=== PATIENT | female | born 1985 | race Caucasian/White ===

== ENCOUNTER 2021-12-25 18:07 | Inpatient (IN) | payer OTHER, SELFPAY ==
[2021-12-25 18:20] VITALS: BP 102/73; PULSE 92; RESP 17; TEMP 36.8; O2SAT 97; BMI 29.9
--- NOTE | 2021-12-25 18:24 | PC.NURSE ---
PT AGREES TO BE SEEN IN ED, ALL BEDS OCCUPIED AT THIS TIME. PT RETURNED TO LOBBY AT THIS TIME. WILL BE ROOMED ANGELITO
[2021-12-25 20:10] VITALS: BP 109/76; PULSE 81; RESP 16; TEMP 36.9; O2SAT 99; BMI 29.9
[2021-12-25 20:12] VITALS: BMI 28.1
--- NOTE | 2021-12-25 20:13 | CT_ITS ---
PROCEDURE INFORMATION: Exam: CT Abdomen And Pelvis With Contrast Exam date and time: 12/25/2021 8:42 PM Age: 36 years old Clinical indication: Nausea and vomiting and other: Diarrhea; Additional info: Abdominal pain, n/v/d x5 days. TECHNIQUE: Imaging protocol: Computed tomography of the abdomen and pelvis with contrast. Radiation optimization: All CT scans at this facility use at least one of these dose optimization techniques: automated exposure control; mA and/or kV adjustment per patient size (includes targeted exams where dose is matched to clinical indication); or iterative reconstruction. Contrast material: ISOVUE; Contrast volume: 75 ml; Contrast route: IV; COMPARISON: No relevant prior studies available. FINDINGS: Liver: Mild fatty infiltration of the liver along the falciform ligament. Periportal edema, which is nonspecific. Gallbladder and bile ducts: Gallbladder is contracted. Pancreas: Normal. No ductal dilation. Spleen: Normal. No splenomegaly. Adrenal glands: Normal. No mass. Kidneys and ureters: Normal. No hydronephrosis. Stomach and bowel: Mild nonspecific bowel wall thickening of portions of small bowel. Appendix: Unremarkable appendix. Intraperitoneal space: Unremarkable. No free air. No significant fluid collection. Vasculature: Unremarkable. No abdominal aortic aneurysm. Lymph nodes: Unremarkable. No enlarged lymph nodes. Urinary bladder: Unremarkable as visualized. Reproductive: Endovaginal tampon. Bones/joints: Unremarkable. No acute fracture. Soft tissues: Unremarkable. Other findings: Stigmata of old granulomatous disease. IMPRESSION: 1. Mild nonspecific bowel wall thickening of portions of small bowel. Please exclude enteritis. 2. Periportal edema, which is nonspecific. Please exclude acute hepatitis.
[2021-12-25 20:26] VITALS: BP 130/86; PULSE 87; RESP 19; O2SAT 100
[2021-12-25 20:37] LABS: Microscopic, Urine URINE MICROSCOPIC (MICROSCOPIC)
[2021-12-25 20:39] LABS: Basophils # 0.3 K/mm3 (0-0.2); Basophils % 3.6 % (0.1-2.0); Eosinophils # 0.2 K/mm3 (0.0-0.4); Eosinophils % 2.3 % (0.1-12.0); Hematocrit 45.5 % (37.0-47.0); Hemoglobin 14.8 g/dL (12.2-16.2); Lymphocytes # 2.8 K/mm3 (0.7-4.5); Lymphocytes % 35.6 % (10-50); Mean Corpuscular HGB Conc 32.4 g/dL (31.8-35.4); Mean Corpuscular Hemoglobin 32.3 pg (27.0-31.2); Mean Corpuscular Volume 99.5 fl (81-99); Mean Platelet Volume 10.5 fl (7.4-10.4); Monocytes # 0.9 K/mm3 (0.1-1.0); Monocytes % 10.8 % (1.7-9.3); Neutrophils # 3.8 K/mm3 (1.8-7.8); Neutrophils % 47.6 % (37.0-80.0); Platelet Count 301 K/mm3 (142-424); Red Blood Count 4.57 M/mm3 (4.20-5.40); Red Cell Distribution Width 13.8 % (11.5-17.5); White Blood Count 7.9 K/mm3 (4.8-10.8)
--- NOTE | 2021-12-25 20:43 | HMH.EDNVD ---
ED Disposition Clinical Impression: Hepatitis Disposition: Admitted as Observation Condition on Discharge: Fair - Critical Care Critical Care Time: No Attestation: On 12/25/21, the high probability of a clinically significant, sudden or life threatening deterioration of the following system(s) required my full and direct attention, intervention and personal management. The time I documented below is in addition to time spent performing reported procedures but includes the following listed in this critical care notation. Medical Decision Making - Medical Records Medical records reviewed: Yes: I reviewed the patient's medical records. - Anselmo Inquiry Pt receiving controlled substance: No Vital Signs: 12/25/21 18:20 12/25/21 20:10 12/25/21 20:26 Temperature 98.3 F 98.4 F Temperature Source Oral Oral Pulse Rate 87 Pulse Rate [Right Brachial] 92 H 81 Respiratory Rate 17 16 19 Blood Pressure 130/86 Blood Pressure [Right Arm] 102/73 L 109/76 L Blood Pressure Mean [Right Arm] 82 87 Blood Pressure Source Automatic Cuff Blood Pressure Source [Right Arm] Automatic Cuff Automatic Cuff Blood Pressure Position Supine Blood Pressure Position [Right Arm] Sitting 02 Sat by Pulse Oximetry 97 99 100 Oxygen Delivery Method Room Air Room Air Room Air 12/25/21 21:00 Temperature Temperature Source Pulse Rate 83 Pulse Rate [Right Brachial] Respiratory Rate 19 Blood Pressure 109/68 L Blood Pressure [Right Arm] Blood Pressure Mean [Right Arm] Blood Pressure Source Automatic Cuff Blood Pressure Source [Right Arm] Blood Pressure Position Supine Blood Pressure Position [Right Arm] 02 Sat by Pulse Oximetry 100 Oxygen Delivery Method Room Air - Lab Data Lab results reviewed: Yes: I reviewed the patient's lab results. Lab Results 12/25/21 20:25: Urine Color Dk yellow, Urine Appearance Clear, Urine pH 7.0, Ur Specific [place] 1.010, Urine Protein Negative, Urine Glucose (UA) Negative, Urine Ketones Negative, Urine Blood 1+, Urine Nitrate Negative, Urine Bilirubin 2+ A, Urine Urobilinogen 2.0, Ur Leukocyte Esterase 1+ A, Urine RBC Occasional, Urine WBC 10-20, Ur Squamous Epith Cells 10-20, Urine Bacteria Trace 12/25/21 20:25: WBC 7.9, RBC 4.57, Hgb 14.8, Hct 45.5, MCV 99.5 H, MCH 32.3 H, MCHC 32.4, RDW 13.8, Plt Count 301, MPV 10.5 H, Neut % (Auto) 47.6, Lymph % (Auto) 35.6, [place] % (Auto) 10.8 H, Eos % (Auto) 2.3, Baso % (Auto) 3.6 H, Neut # (Auto) 3.8, Lymph # (Auto) 2.8, [place] # (Auto) 0.9, Eos # (Auto) 0.2, Baso # (Auto) 0.3 H, ESR 11 12/25/21 20:25: Sodium 138, Potassium 2.9 L*, Chloride 99, Carbon Dioxide 34 H, Anion Gap 7.9, BUN 4 L, Creatinine 0.60, Estimated Creat Clear 164, Estimated GFR 112, Est GFR ( Amer) 135, Glucose 110 H, Calcium 9.2, Total Bilirubin 10.2 H*, AST 2803 H*, ALT 4028 H*, Alkaline Phosphatase 209 H, C-Reactive Protein 5.8 H, Total Protein 8.1, Albumin 4.1, Globulin 4.0 H, Albumin/Globulin Ratio 1.0 L, Amylase 69, Lipase 70, Procalcitonin 0.205 12/25/21 20:25: PT 12.6 H, INR 1.12 H 12/25/21 20:25: Total Bilirubin 10.2 H*, Direct Bilirubin 8.3 H, Conjugated Bilirubin 5.5 H, Indirect Bilirubin 1.9 H, Unconjugated Bilirubin 1.9 H, Alkaline Phosphatase 209 H, Total Protein 8.0, Albumin 4.1 12/25/21 20:25: SARS-CoV-2 (PCR) Not detected, Influenza A Untype (PCR) Not detected, Influenza Type B (PCR) Not detected Result diagrams: 12/25/21 20:25 12/25/21 20:25 Orders (Tests/Meds): ED MEDICATIONS Generic Name Dose Route Start Last Admin Trade Name Freq PRN Reason Stop Dose Admin Sodium Chloride 1,000 mls @ 999 mls/hr 12/25/21 20:15 12/25/21 20:19 Sod Chlor 0.9% 1000ml Bag IV 12/25/21 21:15 999 mls/hr .Q1H1M TEGAN Administration Sodium Chloride 8 ml 12/25/21 20:15 12/25/21 20:28 Sodium Chloride 0.9% 10ml Vial IV 01/24/22 20:14 8 ml NEEDED PRN Administration dilute pepcid Discontinued Medications Generic Name Dose Route Start Last Admin Trade Name
[2021-12-25 20:46] LABS: Chloride 99 mmol/L (98-107); Sodium 138 mmol/L (136-145)
[2021-12-25 20:48] LABS: Amylase 69 U/L (30-110); Blood Urea Nitrogen 4 mg/dl (7-17); Creatinine Clearance Estimated 164 mL/min (50-200); Estimated Glomerular Filt Rate 112 ml/min (>60); GFR (African American) 135 ML/MIN (>60)
[2021-12-25 20:49] LABS: Albumin Level 4.1 g/dl (3.5-5.0); Alkaline Phosphatase 209 U/L (38-126); Anion Gap 7.9 mEq/L (5-15); Bilirubin,Total 10.2 mg/dl (0.2-1.3); Calcium 9.2 mg/dl (8.4-10.2); Carbon Dioxide 34 mmol/L (22.0-30.0); Glucose 110 mg/dl (74-100); Lipase 70 U/L (23-300); Total Protein,Serum 8.1 g/dl (6.3-8.2)
[2021-12-25 20:54] LABS: C-Reactive Protein 5.8 mg/L (0-4)
[2021-12-25 20:57] LABS: Potassium 2.9 mmoL/L (3.5-5.1)
[2021-12-25 21:00] VITALS: BP 109/68; PULSE 83; RESP 19; O2SAT 100
[2021-12-25 21:05] LABS: Appearance,Urine CLEAR (Clear); Blood, Urine 1+ (Negative); Color,Urine DK YELLOW (Yellow); Glucose,Urine (UA) Negative (Negative); Ketones,Urine Negative (Negative); Leukocyte Esterase,Urine 1+ (Negative); Nitrate,Urine Negative (Negative); Protein,Urine Negative (Negative)
[2021-12-25 21:07] LABS: Bilirubin,Urine 2+ (Negative)
[2021-12-25 21:09] LABS: INR 1.12 (0.9-1.1); Prothrombin Time 12.6 seconds (10.1-12.5)
[2021-12-25 21:14] LABS: Alanine Aminotransferase 4028 U/L (12-78); Aspartate Amino Transferase 2803 U/L (14-36)
[2021-12-25 21:16] LABS: Albumin Level 4.1 g/dl (3.5-5.0); Alkaline Phosphatase 209 U/L (38-126); Bilirubin, Conjugated 5.5 mg/dL (0.0-0.3); Bilirubin,Direct 8.3 mg/dl (0.0-0.4); Bilirubin,Indirect 1.9 mg/dL (0.0-0.9); Bilirubin,Total 10.2 mg/dl (0.2-1.3); Bilirubin,Unconjugated 1.9 mg/dL (0.0-1.1)
[2021-12-25 21:21] LABS: Coronavirus 19, PCR Not Detected (NotDetected); Erythrocyte Sedimentation Rate 11 mm/hr (0-20); Influenza A, PCR Not Detected (NotDetected); Influenza B, PCR Not Detected (NotDetected)
[2021-12-25 21:28] LABS: Procalcitonin 0.205 ng/mL (0.0-2.0)
--- NOTE | 2021-12-25 21:49 | PC.NURSE ---
patient assisted to bathroom
[2021-12-25 21:50] LABS: Bacteria,Urine Trace /lpf; RBC,Urine Occasional #/hpf (0-3)
[2021-12-25 22:53] VITALS: BMI 29.9
[2021-12-25 22:54] LABS: Alanine Aminotransferase 3996 U/L (12-78); Aspartate Amino Transferase 3006 U/L (14-36)
[2021-12-25 23:06] VITALS: BP 93/60; PULSE 98; RESP 16; TEMP 37.1; O2SAT 97
--- NOTE | 2021-12-25 23:29 | PC.NURSE ---
PT ARRIVED TO FLOOR VIA W/C FROM ED W/STAFF @ [id number]
[2021-12-25 23:44] LABS: Amphetamine/Metha Screen,Urine Negative ng/ml (<1000); Benzodiazepines Screen,Urine Negative ng/ml (<200)
[2021-12-25 23:45] LABS: Barbiturates Screen,Urine Negative ng/ml (<200)
[2021-12-25 23:46] LABS: Cannabinoid Screen,Urine Positive ng/ml (<50); Cocaine Screen,Urine Negative ng/ml (<300)
[2021-12-25 23:47] LABS: Methadone Screen,Urine Negative ng/ml (<300)
[2021-12-25 23:48] LABS: Opiate Screen,Urine Negative ng/ml (<300); Phencyclidine Screen,Urine Negative ng/ml (<25)
[2021-12-26] VITALS: BP 114/77; PULSE 88; RESP 19; TEMP 36.6; O2SAT 95
[2021-12-26 04:00] VITALS: BP 98/51; PULSE 98; RESP 15; TEMP 36.9; O2SAT 65
[2021-12-26 05:00] VITALS: BMI 30.8
[2021-12-26 05:51] LABS: Basophils # 0.1 K/mm3 (0-0.2); Eosinophils # 0.2 K/mm3 (0.0-0.4); Hematocrit 36.3 % (37.0-47.0); Lymphocytes % 36.6 % (10-50); Mean Corpuscular HGB Conc 33.2 g/dL (31.8-35.4); Mean Corpuscular Hemoglobin 32.9 pg (27.0-31.2); Mean Corpuscular Volume 99.1 fl (81-99); Mean Platelet Volume 10.9 fl (7.4-10.4); Monocytes # 0.6 K/mm3 (0.1-1.0); Monocytes % 10.7 % (1.7-9.3); Neutrophils # 2.6 K/mm3 (1.8-7.8); Neutrophils % 47.8 % (37.0-80.0); Platelet Count 214 K/mm3 (142-424); Red Blood Count 3.66 M/mm3 (4.20-5.40); Red Cell Distribution Width 13.9 % (11.5-17.5); White Blood Count 5.5 K/mm3 (4.8-10.8)
[2021-12-26 06:05] LABS: Hemoglobin 12.1 g/dL (12.2-16.2)
[2021-12-26 06:06] LABS: Albumin Level 2.7 g/dl (3.5-5.0); Alkaline Phosphatase 139 U/L (38-126); Anion Gap 5.5 mEq/L (5-15); Bilirubin, Conjugated 4.3 mg/dL (0.0-0.3); Bilirubin,Direct 6.4 mg/dl (0.0-0.4); Bilirubin,Indirect 1.5 mg/dL (0.0-0.9); Bilirubin,Total 7.9 mg/dl (0.2-1.3); Bilirubin,Unconjugated 1.5 mg/dL (0.0-1.1); Blood Urea Nitrogen 4 mg/dl (7-17); Calcium 7.7 mg/dl (8.4-10.2); Carbon Dioxide 28 mmol/L (22.0-30.0); Chloride 108 mmol/L (98-107); Creatinine Clearance Estimated 202 mL/min (50-200); Estimated Glomerular Filt Rate 138 ml/min (>60); GFR (African American) 167 ML/MIN (>60); Glucose 88 mg/dl (74-100); Potassium 3.5 mmoL/L (3.5-5.1); Sodium 138 mmol/L (136-145); Total Protein,Serum 5.5 g/dl (6.3-8.2)
[2021-12-26 07:18] LABS: Aspartate Amino Transferase 2383 U/L (14-36)
[2021-12-26 07:19] LABS: Alanine Aminotransferase 2700 U/L (12-78)
--- NOTE | 2021-12-26 07:49 | HMH.PHAINT ---
VERIFIED HOME MEDICATION LIST USING LIST FROM [facility]
--- NOTE | 2021-12-26 07:49 | HMH.PHAVTE ---
[facility] Pharmacy VTE Monitoring - Patient Demographics Admission date: 12/26/21 Report Date: 12/26/21 Time: 07:49 Allergies/Adverse Reactions: Patient Allergies No Known Allergies Allergy (Verified 02/12/19 12:25) Height: 1.65 m Weight: 83.915 kg Patient Problems: Current Active Problems Hepatitis (Acute) - VTE Risk Labs: VTE Related Lab Results Hgb 12.1 g/dL (12.2-16.2) L D 12/26/21 05:40 Hct 36.3 % (37.0-47.0) L 12/26/21 05:40 Plt Count 214 K/mm3 (142-424) D 12/26/21 05:40 PT 12.6 seconds (10.1-12.5) H 12/25/21 20:25 INR 1.12 (0.9-1.1) H 12/25/21 20:25 BUN 4 mg/dl (7-17) L 12/26/21 05:40 Creatinine 0.50 mg/dl (0.52-1.04) L 12/26/21 05:40 Estimated Creat Clear 202 mL/min (50-200) 12/26/21 05:40 Was VTE Risk Assessment Performed: No VTE Score: 1 Clinical Trial Participant: No - Prophylaxis VTE Prophylaxis Ordered?: Yes Types of VTE Prophylaxis: TEDS Knee High
[2021-12-26 08:00] VITALS: BP 108/70; PULSE 94; RESP 15; TEMP 37; O2SAT 98
--- NOTE | 2021-12-26 10:57 | CARE MANAGER ---
General Medical Bilirubin > 3.0 mg/dL(51.3??mol/L) (excludes uncomplicated viral hepatitis) and, All: ? Finding, = One: o Albumin level <?2.0 g/dL(20 g/L) ? Imaging scheduled or performed within last 24h ? Intervention, = One: o IV fluid, One: ? = 75 mL/h and, = One: ? Weight <?60 kg
[2021-12-26 13:40] LABS: Alkaline Phosphatase 153 U/L (38-126); Bilirubin, Conjugated 5.2 mg/dL (0.0-0.3); Bilirubin,Direct 7.2 mg/dl (0.0-0.4); Bilirubin,Indirect 1.6 mg/dL (0.0-0.9); Bilirubin,Total 8.8 mg/dl (0.2-1.3); Bilirubin,Unconjugated 1.6 mg/dL (0.0-1.1); Total Protein,Serum 6.2 g/dl (6.3-8.2)
[2021-12-26 14:06] LABS: Alanine Aminotransferase 3168 U/L (12-78); Aspartate Amino Transferase 2748 U/L (14-36)
--- NOTE | 2021-12-26 15:39 | HMH.HP ---
*Admission Date: 12/26/21 *Chief complaint: weakness *History of present illness: pt with progressive weakness and nausea with dec po intake with no known exposure to illness - pt had noted jaundice - has element of abd pain - pt seen in the ed and noted to have marked elevated lft and admitted for eval and treatment [facility] History I have reviewed the patient's past medical history: Yes Medical History: Denies:: Diabetes Mellitus Type 1, Diabetes Mellitus Type 2, MRSA *Have you ever received a pneumonia vaccine?: No *Have you received a flu vaccine this season?: No Laterality Cases: Right: Other Other Surgeries: Yes: , Tubal Ligation Amputation: No Fractures: No - *Social History Last grade of school completed: High school graduate Smoking Status: Never smoker Alcohol Intake: never Substance Use Type: marijuana Last Used Substance: days (ago) *Occupational Status:: employed Housing: house Household Members: significant other *Travel in the last 8 weeks: None Family Hx:: Cancer Review of Systems - Review of Systems Review of systems:: pertinent systems reviewed and negative unless documented below - Constitutional Reports malaise, Reports weakness, Denies fever(s) - Eyes Denies change in vision - ENT Denies sore throat - *Cardiovascular Denies shortness of breath - *Respiratory Denies cough - *Gastrointestinal Reports abdominal pain, Reports nausea, Reports vomiting - *Genitourinary Denies blood in urine - *Musculoskeletal Denies joint pain - Integumentary/Breasts Denies rash - *Neurologic Denies headache(s), Denies seizure-like activity - Psychiatric Denies depression Meds Home Medications Medication Instructions Recorded Confirmed Type Phentermine HCl 37.5 mg PO DAILY 12/25/21 12/25/21 History Allergies Allergy/AdvReac Type Severity Reaction Status Date / Time No Known Allergies Allergy Verified 02/12/19 12:25 Exam Vital signs and Labs for Last 24 Hours: Temp Pulse Resp BP Pulse Ox 98.6 F 94 H 15 108/70 L 98 12/26/21 08:00 12/26/21 08:00 12/26/21 08:00 12/26/21 08:00 12/26/21 08:00 Laboratory Results - last 24 hr 12/25/21 20:25: Urine Color Dk yellow, Urine Appearance Clear, Urine pH 7.0, Ur Specific [place] 1.010, Urine Protein Negative, Urine Glucose (UA) Negative, Urine Ketones Negative, Urine Blood 1+, Urine Nitrate Negative, Urine Bilirubin 2+ A, Urine Urobilinogen 2.0, Ur Leukocyte Esterase 1+ A, Urine RBC Occasional, Urine WBC 10-20, Ur Squamous Epith Cells 10-20, Urine Bacteria Trace 12/25/21 20:25: WBC 7.9, RBC 4.57, Hgb 14.8, Hct 45.5, MCV 99.5 H, MCH 32.3 H, MCHC 32.4, RDW 13.8, Plt Count 301, MPV 10.5 H, Neut % (Auto) 47.6, Lymph % (Auto) 35.6, [place] % (Auto) 10.8 H, Eos % (Auto) 2.3, Baso % (Auto) 3.6 H, Neut # (Auto) 3.8, Lymph # (Auto) 2.8, [place] # (Auto) 0.9, Eos # (Auto) 0.2, Baso # (Auto) 0.3 H, ESR 11 12/25/21 20:25: Sodium 138, Potassium 2.9 L*, Chloride 99, Carbon Dioxide 34 H, Anion Gap 7.9, BUN 4 L, Creatinine 0.60, Estimated Creat Clear 164, Estimated GFR 112, Est GFR ( Amer) 135, Glucose 110 H, Calcium 9.2, Total Bilirubin 10.2 H*, AST 2803 H*, ALT 4028 H*, Alkaline Phosphatase 209 H, C-Reactive Protein 5.8 H, Total Protein 8.1, Albumin 4.1, Globulin 4.0 H, Albumin/Globulin Ratio 1.0 L, Amylase 69, Lipase 70, Procalcitonin 0.205 12/25/21 20:25: PT 12.6 H, INR 1.12 H 12/25/21 20:25: Total Bilirubin 10.2 H*, Direct Bilirubin 8.3 H, Conjugated Bilirubin 5.5 H, Indirect Bilirubin 1.9 H, Unconjugated Bilirubin 1.9 H, AST 3006 H*, ALT 3996 H*, Alkaline Phosphatase 209 H, Total Protein 8.0, Albumin 4.1 12/25/21 20:25: SARS-CoV-2 (PCR) Not detected, Influenza A Untype (PCR) Not detected, Influenza Type B (PCR) Not detected 12/25/21 20:25: Urine Opiates Screen Negative, Urine Methadone Screen Negative, Ur Barbituates Screen Negative, Ur Phencyclidine Scrn Negative, Ur Amphetamines Screen Negative, U Benzodiazepines Scrn Negative, Urine Cocaine
[2021-12-26 16:00] VITALS: BP 119/65; PULSE 84; RESP 18; TEMP 36.8; O2SAT 99
--- NOTE | 2021-12-26 18:57 | PC.NURSE ---
Pt alert and oriented and able to make needs known. VSS. No c/o's this shift. CB in reach. IVF's continue per mar.
[2021-12-26 21:04] VITALS: BP 101/65; PULSE 68; RESP 14; TEMP 36.8; O2SAT 98
[2021-12-27 04:54] VITALS: BP 91/43; PULSE 85; RESP 16; TEMP 36.7; O2SAT 98
[2021-12-27 05:06] VITALS: BMI 30.3
--- NOTE | 2021-12-27 05:16 | PC.NURSE ---
Pt rested well this shift. Pt voiced no c/o of pain, N/V thus far in shift. IV infusing per MAR.
[2021-12-27 06:28] LABS: Basophils # 0.1 K/mm3 (0-0.2); Basophils % 1.2 % (0.1-2.0); Eosinophils # 0.2 K/mm3 (0.0-0.4); Eosinophils % 2.3 % (0.1-12.0); Hematocrit 38.7 % (37.0-47.0); Hemoglobin 12.4 g/dL (12.2-16.2); Lymphocytes # 2.4 K/mm3 (0.7-4.5); Lymphocytes % 32.3 % (10-50); Mean Corpuscular HGB Conc 32.1 g/dL (31.8-35.4); Mean Corpuscular Hemoglobin 32.3 pg (27.0-31.2); Mean Corpuscular Volume 100.7 fl (81-99); Mean Platelet Volume 11.5 fl (7.4-10.4); Monocytes # 0.8 K/mm3 (0.1-1.0); Monocytes % 10.3 % (1.7-9.3); Neutrophils % 53.9 % (37.0-80.0); Platelet Count 228 K/mm3 (142-424); Red Blood Count 3.84 M/mm3 (4.20-5.40); Red Cell Distribution Width 14.2 % (11.5-17.5); White Blood Count 7.3 K/mm3 (4.8-10.8)
[2021-12-27 06:36] LABS: Amylase 60 U/L (30-110); Anion Gap 6.8 mEq/L (5-15); Blood Urea Nitrogen 3 mg/dl (7-17); Carbon Dioxide 27 mmol/L (22.0-30.0); Chloride 105 mmol/L (98-107); Creatinine Clearance Estimated 199 mL/min (50-200); Estimated Glomerular Filt Rate 138 ml/min (>60); GFR (African American) 167 ML/MIN (>60); Glucose 83 mg/dl (74-100); Lipase 78 U/L (23-300); Potassium 3.8 mmoL/L (3.5-5.1); Sodium 135 mmol/L (136-145)
[2021-12-27 06:57] LABS: Albumin Level 2.9 g/dl (3.5-5.0); Alkaline Phosphatase 148 U/L (38-126); Bilirubin, Conjugated 5.1 mg/dL (0.0-0.3); Bilirubin,Direct 7.7 mg/dl (0.0-0.4); Bilirubin,Indirect 1.6 mg/dL (0.0-0.9); Bilirubin,Total 9.3 mg/dl (0.2-1.3); Bilirubin,Unconjugated 1.6 mg/dL (0.0-1.1); Total Protein,Serum 5.6 g/dl (6.3-8.2)
[2021-12-27 07:22] LABS: Alanine Aminotransferase 2816 U/L (12-78); Aspartate Amino Transferase 2569 U/L (14-36)
[2021-12-27 07:59] VITALS: BP 98/59; PULSE 79; RESP 18; TEMP 36.7; O2SAT 96
[2021-12-27 08:19] LABS: HIV Screen 4th Generation wRfx Non Reactive (Non Reactive)
--- NOTE | 2021-12-27 09:54 | P.PN_ITS ---
Internal Medicine - PN: Subj *Date: 12/27/21 *Time: 15:17 Exam Vital signs and Labs for Last 24 Hours: Temp Pulse Resp BP Pulse Ox 98.1 F 79 18 98/59 L 96 12/27/21 07:59 12/27/21 07:59 12/27/21 07:59 12/27/21 07:59 12/27/21 07:59 Laboratory Results - last 24 hr 12/25/21 22:31: HIV 1&2 Ag/Ab, 4th Gen Non reactive 12/26/21 13:13: Total Bilirubin 8.8 H, Direct Bilirubin 7.2 H, Conjugated Bilirubin 5.2 H, Indirect Bilirubin 1.6 H, Unconjugated Bilirubin 1.6 H, AST 2748 H*, ALT 3168 H*, Alkaline Phosphatase 153 H, Total Protein 6.2 L, Albumin 3.0 L D 12/27/21 05:52: WBC 7.3 D, RBC 3.84 L, Hgb 12.4, Hct 38.7, MCV 100.7 H, MCH 32.3 H, MCHC 32.1, RDW 14.2, Plt Count 228, MPV 11.5 H, Neut % (Auto) 53.9, Lymph % (Auto) 32.3, [place] % (Auto) 10.3 H, Eos % (Auto) 2.3, Baso % (Auto) 1.2, Neut # (Auto) 4.0, Lymph # (Auto) 2.4, [place] # (Auto) 0.8, Eos # (Auto) 0.2, Baso # (Auto) 0.1 12/27/21 05:52: Sodium 135 L, Potassium 3.8, Chloride 105, Carbon Dioxide 27, Anion Gap 6.8, BUN 3 L, Creatinine 0.50 L, Estimated Creat Clear 199, Estimated GFR 138, Est GFR ( Amer) 167, Glucose 83, Calcium 8.0 L, Amylase 60, Lipase 78 12/27/21 05:52: Total Bilirubin 9.3 H, Direct Bilirubin 7.7 H, Conjugated Bilirubin 5.1 H, Indirect Bilirubin 1.6 H, Unconjugated Bilirubin 1.6 H, AST 2569 H*, ALT 2816 H*, Alkaline Phosphatase 148 H, Total Protein 5.6 L, Albumin 2.9 L I & O for Last 24 hours: Intake & Output 12/24/21 12/25/21 12/26/21 12/27/21 23:59 23:59 23:59 23:59 Intake Total 1000 / 1000 600 / 600 4022 / 4022 Output Total 0 / 0 Balance 1000 / 1000 600 / 600 4022 / 4022 Weight 180 lb 185 lb 182 lb Microbiology Reports for the Last 24 Hours: Microbiology 12/25/21 20:25 Urine,Clean Catch Urine Culture - Preliminary Assessment and Plan (1) Hepatitis Status: Acute Category: Medical Code(s): K75.9 - Inflammatory liver disease, unspecified
[2021-12-27 10:22] LABS: Hep A Ab, IgM NEGATIVE
[2021-12-27 10:26] LABS: Hepatitis B Surface Antigen POSITIVE
[2021-12-27 10:28] LABS: Hepatitis C Antibody <0.1
[2021-12-27 10:29] LABS: Hepatitis B Core Antibody IgM POSITIVE
--- NOTE | 2021-12-27 14:59 | PC.NURSE ---
PT IS RESTING IN BED. NO COMPLAINTS OF DISCOMFORT. EATING AND DRINKING WELL W/O N/V. LUNG SOUNDS CLEAR. ABDOMEN MILDLY DISTENDED WITH HYPOACTIVE BOWEL SOUNDS. AMBULATES TO THE BATHROOM. SKIN (JAUNDICE). VSS. WILL CONTINUE TO MONITOR.
[2021-12-27 15:12] VITALS: BP 100/57; PULSE 70; RESP 18; TEMP 36.8; O2SAT 97
--- NOTE | 2021-12-27 15:17 | HMH.DCSUM ---
General - General Admission date:: 12/25/21 Discharge date: 12/27/21 HPI HPI: pt with progressive weakness and nausea with dec po intake with no known exposure to illness - pt had noted jaundice - has element of abd pain - pt seen in the ed and noted to have marked elevated lft and admitted for eval and treatment Hospital Course Hospital Course: pt with progressive weakness and nausea with dec po intake with no known exposure to illness - pt had noted jaundice - has element of abd pain - pt seen in the ed and noted to have marked elevated lft and admitted for eval and treatment AST initially 3006 has decreased to 2569 ALT initially 3996 has decreased to 2816 T bili initially 10.2 has decreased to 9.3 Potassium originally 2.9, has been replenished and now 3.8 Initially patient reported nausea that was treated with Zofran and she received IV fluids. She was able to tolerate a regular diet without any difficulties and was up moving about in her room. She denies any IV drug use or suspect tattoos. She does report helping a bleeding individual several weeks ago and coming into contact with his blood with her hands. Hepatitis was suspected and lab work revealed hepatitis A and hepatitis C both negative, but she was positive for hepatitis B. HIV was negative. Hepatitis B Follow-up in PCP office for discussion and GI consult Hypokalemia Initially 2.9 replenished and now 3.8 36-year-old female patient sitting up in bed resting quietly in no apparent distress. She denies any nausea this morning and is tolerating a regular breakfast without difficulty. We will discharge today with quick PCP follow-up PLAN: 1. We will discharge home today 2. Follow-up in office Saturday 3. No intercourse Objective Vital signs: Temp Pulse Resp BP Pulse Ox 98.3 F 70 18 100/57 L 97 12/27/21 15:12 12/27/21 15:12 12/27/21 15:12 12/27/21 15:12 12/27/21 15:12 no acute distress - *Routine HEENT Exam Head: Present: normocephalic Eye: Present: conjunctival icterus ENT: Present: mucous membranes moist - *Routine Neck Exam Present: trachea midline. Absent: tracheal deviation - *Routine Respiratory Exam Present: CTA bilaterally. Absent: accessory muscle use - *Routine Cardiovascular Exam Present: RRR - *Routine Abdominal Exam Present: soft, normoactive bowel sounds. Absent: tenderness, firm - *Routine Extremities Exam Present: full ROM, pulses intact. Absent: cyanosis, clubbing, calf tenderness - *Routine Skin Exam Present: intact, dry. Absent: cyanosis, erythema - *Routine Neurological Exam Present: alert, oriented X3. Absent: motor deficit - Routine Psychiatric Exam Present: normal affect, normal thought process. Absent: auditory hallucinations Results Labs on day of discharge: Labs from last 24 hours 12/27/21 12/27/21 12/27/21 05:52 05:52 05:52 WBC 7.3 D RBC 3.84 L Hgb 12.4 Hct 38.7 MCV 100.7 H MCH 32.3 H MCHC 32.1 RDW 14.2 Plt Count 228 MPV 11.5 H Neut % (Auto) 53.9 Lymph % (Auto) 32.3 [place] % (Auto) 10.3 H Eos % (Auto) 2.3 Baso % (Auto) 1.2 Neut # (Auto) 4.0 Lymph # (Auto) 2.4 [place] # (Auto) 0.8 Eos # (Auto) 0.2 Baso # (Auto) 0.1 Sodium 135 L Potassium 3.8 Chloride 105 Carbon Dioxide 27 Anion Gap 6.8 BUN 3 L Creatinine 0.50 L Estimated Creat Clear 199 Estimated GFR 138 Est GFR ( Amer) 167 Glucose 83 Calcium 8.0 L Total Bilirubin 9.3 H Direct Bilirubin 7.7 H Conjugated Bilirubin 5.1 H Indirect Bilirubin 1.6 H Unconjugated Bilirubin 1.6 H AST 2569 H* ALT 2816 H* Alkaline Phosphatase 148 H Total Protein 5.6 L Albumin 2.9 L Amylase 60 Lipase 78 Hepatitis A IgM Ab Hep Bs Antigen Hep B Core IgM Ab Hepatitis C Antibody HIV 1&2 Ag/Ab, 4th Gen 12/25/21 12/25/21 22:31 21:09 WBC RBC
== END 2021-12-27 16:03 | disposition home or self-care (01) | DRG 443 ==
LOC: ER 20:12 → 2ND 22:52
PROVIDERS: Nurse Practitioner Family; Admitting Provider Emergency Medicine; Emergency Provider Emergency Medicine; PCP Nurse Practitioner Family; Visit Provider Family Medicine
DX: B19.10 Unspecified viral hepatitis B without hepatic coma (principal); E87.6 Hypokalemia; Z20.822 Contact with and (suspected) exposure to COVID-19
CPT/HCPCS: 36415; 74177; 80048; 80053; 80074; 80076; 80305; 81001; 82150; 83690; 83735; 84145; 85025; 85610; 85651; 86140; 86703; 87086; 99285; C9803; G0432; J2405; Q9967; U0003; U0005

== ENCOUNTER → 2021-12-29 11:27 | Outpatient (CLI) | payer OTHER, SELFPAY ==
[2021-12-29 12:31] LABS: Chloride 103 mmol/L (98-107); Sodium 137 mmol/L (136-145)
[2021-12-29 12:34] LABS: Albumin Level 3.6 g/dl (3.5-5.0); Albumin/Globulin Ratio 1.1 (1.1-1.8); Alkaline Phosphatase 174 U/L (38-126); Bilirubin,Total 11.5 mg/dl (0.2-1.3); Blood Urea Nitrogen 5 mg/dl (7-17); Carbon Dioxide 28 mmol/L (22.0-30.0); Estimated Glomerular Filt Rate 112 ml/min (>60); GFR (African American) 135 ML/MIN (>60); Globulin 3.4 g/dL (1.3-3.2)
[2021-12-29 12:35] LABS: Calcium 9.5 mg/dl (8.4-10.2); Glucose 141 mg/dl (74-100)
[2021-12-29 13:58] LABS: Aspartate Amino Transferase 2646 U/L (14-36)
[2021-12-29 13:59] LABS: Alanine Aminotransferase 3070 U/L (12-78)
== END ==
PROVIDERS: PCP Nurse Practitioner Family; Visit Provider Nurse Practitioner Family
DX: K75.9 Inflammatory liver disease, unspecified (principal); N28.9 Disorder of kidney and ureter, unspecified
CPT/HCPCS: 36415; 80053; 87086; 87088; 87186

== ENCOUNTER → 2022-09-03 10:07 | Outpatient (POV) | payer OTHER, SELFPAY ==
--- NOTE | 2022-09-03 10:27 | EXP.PAIN.OV ---
HPI Data of Consult Patient: new to practice Consult date: 09/03/22 Requesting Physician: Stephanie Iverson APRN Primary Care Provider: Zev Gonzales APRN Consult Narrative Reason for consult: Low back pain History of present illness: Ms. Poole is a 36 year old female who presents today as a new patient. She is a referral from Zev Gonzales's office. Today she rates her pain a 6 out of 10. Patient states her pain is all in her low back and has been going on for years. Patient states that she did have a job at [employer] in 2009 where she did initially hurt her back and it is progressively worsened since. Patient does describe this as a aching, stabbing pain that is constant and worse with bending, lifting and twisting. 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 Patient also states that she has had weight gain over the years which has aggravated her pain symptoms. Patient states that she does get some relief with increased pressure at her back. Patient has tried [id number] medicine such as Tylenol or ibuprofen however she states she does not really take these because she does not like taking oral medications and she did not have significant improvement. Patient does use a daily heating pad to provide short-term relief. Patient has tried vpjr-dsa-[id number] creams such as Bengay with no additional relief. Patient denies any previous back surgery, injections or physical therapy. Patient states she has had chiropractor in the past that provided some improvement. Patient states she has not had any updated imaging for 3 to 4 years and that it was done in [facility]. Patient is on phentermine 37.5 mg daily from her primary care doctor. Patient denies any side effects from this medication. Her Anselmo is [phone]. Its been reviewed and appropriate. CC: Stephanie Iverson APRN [facility] Disclaimer: The information contained in this section may have been updated after the patient was seen, as this information can be updated by other users. Surgical History (Updated 09/03/22 @ 10:34 by Katt Fontenot RN) Hx of section Hx of tubal ligation Social History Smoking Status: Never smoker second hand exposure: No alcohol intake: never substance use type: marijuana current occupational status: employed Travel in the last 8 weeks: None household members: significant other housing: house Review of Systems Review of Systems Review of systems:: pertinent systems reviewed and negative unless documented below Review of systems (narrative): Review of Systems: General: No recent weight changes, no fever, no sleep disturbances Respiratory: No cough, no shortness of air, no recurring pulmonary infections Cardiovascular/peripheral vascular: No chest pain, no palpitations, no edema, no shortness of breath Gastrointestinal: No new onset incontinence, normal bowel movements reported Genitourinary: No new onset incontinence Musculoskeletal: Low back pain Psychiatric: [Normal mood/affect] Neurological: [Denies weakness in extremities], [denies balance issues] Meds Home Medications and Allergies Home Medications Medication Instructions Recorded Confirmed Type omeprazole 20 mg capsule,delayed 20 mg PO DAILY STOMACH 09/03/22 09/03/22 History release ondansetron 8 mg disintegrating 8 mg PO Q8H Nausea & vomiting 09/03/22 09/03/22 History tablet polyethylene glycol 3350 17 17 g PO DAILY BOWELS 09/03/22 09/03/22 History gram/dose oral powder (Miralax) New Prescriptions to Start Prescriptions: Allergies Allergy/AdvReac Type Severity Reaction Status Date / Time No Known Allergies Allergy Verified 01/12/22 15:34 Objective Narrative: Physical Exam: General: Alert and oriented x3, no acute distress, pleasant and cooperative Lungs:
[2022-09-03 10:29] VITALS: BP 117/77; PULSE 82; RESP 18; O2SAT 97; BMI 43.2
== END ==
PROVIDERS: PCP Nurse Practitioner Family; Visit Provider Nurse Practitioner Family
DX: M54.50 Low back pain, unspecified (principal)
CPT/HCPCS: 99202; G0463

== ENCOUNTER → 2022-09-03 10:37 | Outpatient (CLI) | payer OTHER, SELFPAY ==
--- NOTE | 2022-09-03 10:41 | XR_ITS ---
FINAL REPORT CLINICAL HISTORY: LOW BACK PAIN..no trauma FINDINGS: AP, lateral, and oblique views of the lumbar spine were obtained. There is no acute fracture or acute malalignment. Vertebral body height is preserved. . No acute paraspinal abnormality is identified. IMPRESSION: No acute osseous abnormalities lumbar spine. Reviewed, Interpreted and Dictated by Diamond Weeks MD Transcribed by Mak Monzon Authenticated and [facility]
== END ==
PROVIDERS: PCP Nurse Practitioner Family; Visit Provider Nurse Practitioner Family
DX: M54.50 Low back pain, unspecified (principal)
CPT/HCPCS: 72110

== ENCOUNTER 2023-01-13 15:47 | Emergency (ER) | payer OTHER, SELFPAY ==
[2023-01-13 16:17] VITALS: BP 133/95; PULSE 108; RESP 18; TEMP 37.1; O2SAT 98; BMI 49.8
[2023-01-13 16:31] VITALS: BP 121/75; BP 191/119; PULSE 90; PULSE 96; RESP 18; RESP 20; TEMP 37.2; O2SAT 98; O2SAT 99
--- NOTE | 2023-01-13 16:31 | PC.NURSE ---
BP recheck after reading of 191/119. upon entering room pt's arm was raised above her head and pt was talking on her phone. bp recheck 121/75.
--- NOTE | 2023-01-13 16:33 | [facility].EDGENADL ---
Discharge Plan Disposition Patient Disposition: Home, Self-Care Condition: Good Prescriptions Prescriptions: New doxycycline hyclate 100 mg capsule 100 mg PO Q12H 14 Days Qty: 28 0RF No Action ondansetron 8 mg tablet,disintegrating 8 mg PO Q8H omeprazole 20 mg capsule,delayed release(DR/EC) 20 mg PO DAILY polyethylene glycol 3350 [Miralax] 17 gram/dose powder 17 g PO DAILY Referrals Follow up/Referrals: Provider,Referral, MD [Primary Care Provider] - See instructions Activity Restrictions/Add. Instructions Additional Instructions/Restrictions: You have been evaluated for skin rash. Concern for a tick bite. Please take doxycycline as prescribed. Follow-up with your primary care doctor in 1 to 2 days for symptom recheck. Return to the emergency department at once for any new or worsening symptoms, spreading rash, fevers, shortness of breath, any other concerns. Clinical Impressions Clinical Impression: Target rash, Insect bite Instructions Patient Instructions: DI for Skin Abscess Discharge ED Provider: Halina Jackson Adult HPI General Chief complaint: Skin/Abscess/Foreign Body Stated complaint: possible spider bite right hip, pain and purple li Time Seen by Provider: 01/13/23 16:15 Mode of Arrival: Ambulatory Source of Information: Patient Limitations: No Limitations Description of Symptoms (Recalled from ER Triage Doc. by RN): pt presents to ED with a bite to right outer thigh. bite has bullseye apearance. pt states she first noticed the bite 2 days ago. History of Present Illness HPI narrative: 37-year-old female presenting to the emergency department with a bite, spot on her right hip. She noticed it 2 days ago. It was a small red raised area. Over the last day it has gotten bigger. Now there is a red ring surrounding it. She does not remember any particular bite or sting. She has been outside, but does not remember a tick bite. No other rashes on her skin. No fevers, chills, shortness of breath. No known medication allergies. Unsure of her most recent tetanus immunization. Related Data Home Medications Medication Instructions Recorded Confirmed omeprazole 20 mg capsule,delayed 20 mg PO DAILY STOMACH 09/03/22 09/03/22 release ondansetron 8 mg disintegrating 8 mg PO Q8H Nausea & vomiting 09/03/22 09/03/22 tablet polyethylene glycol 3350 17 17 g PO DAILY BOWELS 09/03/22 09/03/22 gram/dose oral powder (Miralax) Previous Rx's Medication Instructions Recorded doxycycline hyclate 100 mg capsule 100 mg PO Q12H 14 days #28 caps 01/13/23 Allergies Allergy/AdvReac Type Severity Reaction Status Date / Time No Known Allergies [facility]22 15[facility] Dis[facility]: The information contained in this section may have been updated after the patient was seen, as this information can be updated by other users. Surgical History (Updated 09/03/22 @ 10:34 by Katt Fontenot RN) Hx of section Hx of tubal ligation Social History Smoking Status: Current some day smoker second hand exposure: No alcohol intake: never substance use type: marijuana current occupational status: employed Travel in the last 8 weeks: None household members: significant other housing: house ROS Obtained: Yes All systems reviewed & no additional complaints except as documented Constitutional Constitutional: Denies body ache, Denies fatigue, Denies fever(s) and Denies headache(s) Eyes Eyes: Denies itchy eyes ENT Ears, Nose, Mouth, and Throat: Denies headache(s) and Denies neck pain Cardiovascular Cardiovascular: Denies dyspnea and Denies palpitations Respiratory Respiratory: Denies dyspnea and Denies wheezing Gastrointestinal Gastrointestingal: Denies nausea or vomiting Genitourinary Female Genitourinary: Denies dysuria and Denies hematuria Musculoskeletal Musculoskeletal: Den
[2023-01-13 16:52] VITALS: BP 121/75; PULSE 90; RESP 18; TEMP 37.2; O2SAT 99
== END 2023-01-13 16:59 | disposition home or self-care (01) ==
PROVIDERS: Emergency Provider Emergency Medicine
DX: S71.051A Open bite, right hip, initial encounter (principal); R21 Rash and other nonspecific skin eruption; W57.XXXA Bitten or stung by nonvenomous insect and other nonvenomous arthropods, initial encounter; F17.200 Nicotine dependence, unspecified, uncomplicated; Z23 Encounter for immunization
CPT/HCPCS: 90471; 90715; 96372; 99283; 99284